=== PATIENT | female | born 1935 | race Caucasian/White ===

== ENCOUNTER 2019-10-31 07:34 | Day surgery (SDC) | payer MEDICARE ==
[~2019-10-31] VITALS: Ht 164 cm; Wt 96.0 kg
[~2019-10-31 07:34] MED LIST: LIDOCAINE 1% INJ 20 ML 20 ML VIAL ONE
[2019-10-31] MEDS ORDERED: LIDOCAINE 1% INJ 20 ML 20 ML VIAL INJ ONE (07:45)
[2019-10-31 07:46] VITALS: BP 170/80
--- NOTE | 2019-10-31 08:59 | History & Physicial-Cardiolgy ---
HPI-Cardiology Cardiology Consultation: Date of Consultation 10/31/19 Date of Admission Attending Physician Eda Copeland MD Admitting Physician Samantha Yoo MD Consulting Physician Eda COPELAND MD HPI: Time Seen by a Provider: 08:30 Chief Complaint: Cryptogenic stroke This is a 84-year-old lady who was referred by Dr. Yoo for an acute stroke that happened on 08/01/2019. Patient had negative telemetry for 48 hours. Negative echocardiogram with normal EF, no regional wall motion abnormalities and a negative bubble study. Carotid evaluation did not show any carotid sten osis. Therefore atrial fibrillation needs to be ruled out. Review of Systems-Cardiology Review of Systems Constitutional: As described under HPI; No As described under HPI, No no symptoms reported, No chills, No fever, No lightheadedness Eyes: No As described under HPI, No no symptoms reported, No blindness, No bl urred vision, No contact lenses, No drainage, No decreased acuity, No foreign body sensation, No pain, No vision change Ears/Nose/Throat: No As described under HPI, No no symptoms reported, No chronic hearing loss, No ear discharge, No ear pain, No nasal drainage, No ulcerations Respiratory: No no symptoms reported; As described under HPI; No As described under HPI, No cough, No orthopnea, No shortness of breath, No SOB with excertion Cardiovascular: No no symptoms reported; As described under HPI; No As described under HPI, No chest pain, No edema, No irregular heart rate, No lightheadedness, No palpitations Gastrointestinal: No no symptoms reported, No As described under HPI, No abdomen distended, No abdominal pain, No blood streaked bowels, No constipation, No diarrhea, No nausea, No vomiting, No stool coloration changes Genitourinary: No As described under HPI, No burning, No dysuria, No discharge, No frequency, No flank pain, No hematuria, No urgency : Yes : No Skin: No rash, No skin related problems, No ulcerations Psychiatric/Neurological: No anxiety, No depression, No seizure, No focal weakness, No syncope Hematologic: No bleeding abnormalities EBO-[id number] Hx Patient Social History Alcohol Use: Denies Use Recreational Drug Use: No Smoking Status: Never a Smoker Recent Foreign Travel: No Recent Infectious Disease Expo: No Immunizations Up To Date Tetanus Booster (TDap): Unknown Date of Pneumonia Vaccine: Jun 03, 2019 Date of Influenza Vaccine: Jun 03, 2019 Past Medical History PMH As described under Assessment. Allergies and Home Medications Allergies Coded Allergies: Penicillins (Verified Allergy, Unknown, 10/31/19) Sulfa (Sulfonamide Antibiotics) (Verified Allergy, Unknown, 10/31/19) Patient Home Medication List Home Medication List Reviewed: Yes Physical Exam-Cardiology Physical Exam Vital Signs/I&O 10/31/19 07:46 Pulse 83 Resp 18 B/P (MAP) 170/80 (110) Pulse Ox 98 O2 Delivery Room Air Capillary Refill : Constitutional: appears stated age; No apparent distress; well-developed, well- nourished HEENT: PERRL; No discharge; hearing is well preserved, oral hygience is good; No ulceration, No xanthelasmas are seen Neck: No carotid bruit; carotid pulses are 2 + bilaterally Respiratory: chest is bilaterally symmetric, lungs clear to auscultation Cardiovascular: regular rate-rhythm, S1 and S2 Gastrointestinal: soft, audible bowel sounds; No spleenomegaly Rectal: deferred Extremities: normal range of motion, non-tender, normal inspection; No clubbing, No cyanosis; no lower extremity edema bilateral; No significant edema Neurologic/Psychiatric: no motor/sensory deficits, alert, normal mood/affect, oriented x 3, power is 5/5 both on sides Skin: normal color; No rash, No ulcerations A/P-Cardiology Assessment/Admission Diagnosis Cryptogenic stroke Admission Status: Observation Plan Cryptogenic stroke, implantable loop recorder is recommended. Eda COPELAND MD Oct 31, 2019 08:59
--- NOTE | 2019-10-31 09:01 | Implantation of Loop Monitor ---
Implant of Loop Monitior PROCEDURE PHYSICIAN: Cinthya Copeland MD IMPLANTATION OF LOOP MONITOR REPORT DATE OF PROCEDURE: 10/31/19 ATTENDING PHYSICIAN: Dr. Corey Copeland. REFERRING PHYSICIAN: Dr. Samantha Yoo PERFORMING PHYSICIAN: Dr. Corey Copeland. INDICATION: Cryptogenic stroke PREOP DIAGNOSIS: Cryptogenic stroke POSTOP DIAGNOSIS: Cryptogenic stroke, s/p implantation of loop recorder. PROCEDURE DETAILS: The patient is a 84 female with history of cryptogenic stroke requiring long- term surveillance to rule out paroxysmal atrial fibrillation. Therefore implantable loop recorder was discussed and agreed with the patient. Informed consent was taken. All risks and complications were discussed at length. The patient was draped and prepped in the usual sterile fashion. Local anesthesia was lidocaine, which was given in the substernal area close to the 4th intercostal space. Loop monitor was implanted according to the protocol. Steri- Strips were placed at the end of the procedure. There were no complications and the patient tolerated the procedure well. ANESTHESIA: Local anesthesia with lidocaine. COMPLICATIONS: None CONTRAST/FLUOROSCOPY: None CONCLUSION: 1. Successful implantation of loop monitor for cryptogenic stroke. 2. No complication and the patient tolerated the procedure well. Cinthya Copeland MD, [facility] Cardiac Electrophysiology Eda COPELAND MD Oct 31, 2019 09:01
== END 2019-10-31 09:25 ==
LOC: CATH 07:34
PROVIDERS: ATTEND Internal Medicine Interventional Cardiology
DX: I63.9 Cerebral infarction, unspecified (principal); E78.01 Familial hypercholesterolemia; I10 Essential (primary) hypertension; R94.6 Abnormal results of thyroid function studies; Z88.2 Allergy status to sulfonamides; Z88.0 Allergy status to penicillin; Z79.899 Other long term (current) drug therapy; Z79.02 Long term (current) use of antithrombotics/antiplatelets; Z80.9 Family history of malignant neoplasm, unspecified
CPT/HCPCS: 33285